=== PATIENT | female | born 1985 | race Caucasian/White ===

== ENCOUNTER 2017-07-11 11:08 | Emergency (ER) | payer OTHER, BC ==
[2017-07-11] MEDS: METHYLPREDNISOLONE 125 MG INJ IM (14:22)
[2017-07-11] MEDS: FAMOTIDINE 20 MG TAB PO (14:22)
[2017-07-11] MEDS: DIPHENHYDRAMINE 50 MG INJ IM (14:22)
== END 2017-07-11 15:20 | disposition home or self-care (01) ==
LOC: FTE 11:08
DX: R21 Rash and other nonspecific skin eruption (principal); Z85.41 Personal history of malignant neoplasm of cervix uteri
CPT/HCPCS: 96372; 99284-25

== ENCOUNTER 2017-07-15 16:12 | Emergency (ER) | payer OTHER ==
[2017-07-15] MEDS: EPINEPHrine 1 MG INJ IM (19:36)
== END 2017-07-15 20:15 | disposition home or self-care (01) ==
LOC: FTE 16:12
DX: L29.9 Pruritus, unspecified (principal); Z85.41 Personal history of malignant neoplasm of cervix uteri
CPT/HCPCS: 96372; 99284-25

== ENCOUNTER 2018-12-10 13:33 | Emergency (ER) | payer OTHER ==
[2018-12-10] MEDS: ASPIRIN 325 MG TAB PO (15:11)
[2018-12-10 15:13] LABS: URINE BLOOD (Dip) POC Negative (NEGATIVE); URINE GLUCOSE (Dip) POC Negative (NEGATIVE); URINE KETONES (Dip) POC Negative (NEGATIVE); URINE LEUKOCYTE EST (Dip) POC 1+ (NEGATIVE); URINE NITRITE (Dip) POC Negative (NEGATIVE); URINE TOTAL PROTEIN POC Negative (NEGATIVE)
[2018-12-10 15:27] LABS: ADD MAN DIFF? NO; BASOPHILS % 0.4 % (0.0-2.0); EOSINOPHILS # 0.1 10^3/ul (0.0-0.5); EOSINOPHILS % 1.4 % (0.0-7.0); HEMATOCRIT 38.5 % (37.0-47.0); LYMPHOCYTES # 2.9 10^3/ul (0.8-2.9); LYMPHOCYTES % 33.5 % (15.0-51.0); MEAN CORPUSCULAR HEMOGLOBIN 30.4 pg (29.0-33.0); MEAN CORPUSCULAR HGB CONC 33.8 g/dl (32.0-37.0); MEAN CORPUSCULAR VOLUME 90.2 fl (82.0-101.0); MEAN PLATELET VOLUME 10.4 fl (7.4-10.4); MONOCYTE # 0.4 10^3/ul (0.3-0.9); MONOCYTES % 5.1 % (0.0-11.0); NEUTROPHIL # 5.1 10^3/ul (1.6-7.5); NEUTROPHILS % 59.2 % (39.0-77.0); PLATELET COUNT 327 10^3/UL (140-415); RED BLOOD COUNT 4.27 10^6/ul (4.20-5.40); RED CELL DISTRIBUTION WIDTH 11.9 % (11.5-14.5)
[2018-12-10 15:27] LABS: WHITE BLOOD COUNT 8.6 10^3/ul (4.8-10.8)
[2018-12-10 15:44] LABS: AMPHETAMINE/METHAMPHETAMINE Negative (NEGATIVE); BARBITURATES Negative (NEGATIVE); BENZODIAZEPINES Negative (NEGATIVE); COCAINE Negative (NEGATIVE); OPIATES Negative (NEGATIVE)
[2018-12-10 15:48] LABS: ANION GAP 8 (5-13); BLOOD UREA NITROGEN 14 mg/dl (7-20); CARBON DIOXIDE 27 mmol/L (21-31); CHLORIDE 105 mmol/L (97-110); CREATINE KINASE 183 IU/L (23-200); CREATININE 0.59 mg/dl (0.44-1.00); Estimated GFR > 60 mL/min (>60); GLUCOSE 97 mg/dl (70-220); POTASSIUM 3.7 mmol/L (3.5-5.1); SODIUM 140 mmol/L (135-144)
[2018-12-10 15:55] LABS: CANNABINOIDS Negative (NEGATIVE)
[2018-12-10 15:59] LABS: CK-MB 1.84 ng/ml (0.0-2.4); TROPONIN-I < 0.012 ng/ml (0.000-0.120)
== END 2018-12-10 16:32 | disposition home or self-care (01) ==
LOC: FTE 16:32
DX: R07.9 Chest pain, unspecified (principal); Z85.41 Personal history of malignant neoplasm of cervix uteri
CPT/HCPCS: 36415; 71045; 80048; 80307; 81003; 81025; 82550; 82553; 82962; 84484; 85025; 93005; 99285-25